=== PATIENT | male | born 1960 | race Caucasian/White ===

== ENCOUNTER 2018-11-27 09:02 | Inpatient (IN) | payer OTHER ==
--- NOTE | 2018-11-27 10:13 | PCM.HP ---
H&P History of Present Illness - General Date of Service: 11/27/18 Admit Problem/Dx: arthoplasty of hip Source of Information: Patient History Limitations: Reports: No Limitations - History of Present Illness Initial Comments - Free Text/Narative: patient is being admitted to swing bed care for rehabilitation after a total hip arthroplasty. He fell on November 21 resulting in a hip fracture. He presented to the ER on 11/22/18 and was diagnosed with a hip fracture. he had surgery on on November 23 has remained inpatient at [facility]. he has been admitted today for physical therapy and occupational therapy. His concerns regarding returning home include number of stairs that he would have navigate in order to get into the house and into the bedroom. Patient has moderate pain after surgery and has been taking hydrocodoneAPAP 5 mg/325 mg 2 tablets every 4 hours. This has been effective in pain control. He has no concerns with constipation at this time. However he has been placed on laxatives to prevent constipation. He is on a regular diet at the hospital and home. We will continue that. Patient is appropriate for swing bed care Onset of Symptoms: Reports: Other (11/21/2018) Right Hip Pain Score (Numeric/FACES): 4 - Related Data Allergies/Adverse Reactions: Allergies Allergy/AdvReac Type Severity Reaction Status Date / Time Plxpawm-Goc-Xpr Reductase Allergy Other Verified 07/26/18 10:23 Inhibitor Home Medications: Home Meds Aspirin 325 mg PO DAILY 07/25/18 [History] Hydrocodone/Acetaminophen [Hydrocodon-Acetaminophen 5-325] 1 - 2 tab PO Q4H PRN 07/25/18 [History] Multivitamin [Multi-Vitamin Daily] 1 tab PO DAILY 07/25/18 [History] Omeprazole 40 mg PO DAILY 07/25/18 [History] Tadalafil [Cialis] 5 mg PO ASDIRECTED PRN 07/25/18 [History] traMADol [Ultram] 50 mg PO Q4H PRN 07/25/18 [History] Past Medical History HEENT History: Reports: Cataract, Impaired Vision Cardiovascular History: Reports: High Cholesterol Respiratory History: Reports: None Gastrointestinal History: Reports: None, GERD Genitourinary History: Reports: None Musculoskeletal History: Reports: Arthritis, Back Pain, Chronic, Other (See Below) (total hip arthroplasty) Other Musculoskeletal History: pain in hip joint, pain in misti. knees Neurological History: Reports: None Other Neuro History: thoracic or lumbosacral neuritis or radiculitis, lumbar stenosis w/ neurogenic claudication Psychiatric History: Reports: None - Past Surgical History Head Surgeries/Procedures: Reports: None HEENT Surgical History: Reports: Cataract Surgery Cardiovascular Surgical History: Reports: None GI Surgical History: Reports: Colonoscopy Neurological Surgical History: Reports: Other (See Below) Other Neurological Surgeries/Procedures: spinal cord stimulator Musculoskeletal Surgical History: Reports: Hip Replacement Social & Family History - Family History Family Medical History: Noncontributory - Caffeine Use Caffeine Use: Reports: Coffee, Soda H&P Review of Systems - Review of Systems: Review Of Systems: See Below General: Reports: No Symptoms HEENT: Reports: No Symptoms, Glasses Pulmonary: Reports: No Symptoms Cardiovascular: Reports: No Symptoms Gastrointestinal: Reports: No Symptoms Genitourinary: Reports: No Symptoms Musculoskeletal: Reports: Leg Pain Skin: Reports: Wound Psychiatric: Reports: No Symptoms Neurological: Reports: No Symptoms Hematologic/Lymphatic: Reports: No Symptoms Immunologic: Reports: No Symptoms Exam - Exam Exam: See Below - Exam General: Alert, Oriented, Cooperative HEENT: Conjunctiva Clear, EOMI, Mucosa Moist & [place], Posterior Pharynx Clear, Pupils Equal, Pupils Reactive Neck: Supple, Trachea Midline Lungs: Clear to Auscultation, Normal Respiratory Effort Cardiovascular: Regular Rate, Regular Rhythm, Normal S1, Normal S2 GI/Abdominal Exam: Normal Bowel Sounds, Soft, Non-Tender (Male) Exam: Deferred Rectal (Males) Exam: Deferred Back Exam: Normal Inspection, Full Range of Motion Extremities: Normal Inspection, No Pedal Edema, Leg Pain, Limited Range of Motion (to right hip, otherwise ROM is unremarkable) Skin: Incision Neurological: Cranial Nerves Intact Neuro Extensive - Mental Status: Alert, Oriented x3, Normal Mood/Affect, Normal Cognition, Memory Intact Psychiatric: Alert, Normal Affect, Normal Mood - Problem List (1) History of arthroplasty of right hip SNOMED Code(s): 356022542 ICD Code: Z98.890 - OTHER SPECIFIED POSTPROCEDURAL STATES Status: Acute Current Visit: Yes Onset Date: ~11/23/18 Problem Details: Patient will follow PT and OT recommendations for rehabilitation after hip replacement. Patient will remain at a pain level that is tolerable and does not inhibit quality of life. Incision will be monitored and will heal without difficulty. Occulsive dressing will remain in place. Problem List Initiated/Reviewed/Updated: Yes
[2018-11-27] MEDS ORDERED: Codeine/guaiFENesin 100-10 MG/5 ML Syrup 5 ML Cup PO PRN (11:36)
[2018-11-27] MEDS: Acetaminophen/HYDROcodone 325-5 MG Tab PO PRN ×3 (11:49→22:46)
[2018-11-27] MEDS ORDERED: Acetaminophen 500 MG Tab PO PRN (12:00)
[2018-11-27] MEDS ORDERED: Acetaminophen/HYDROcodone 325-5 MG Tab PO PRN (12:00)
[2018-11-27] MEDS: Aspirin 325 MG Tab PO SCH (17:21)
[2018-11-27] MEDS: CELECOXIB 200 MG PO SCH (17:21)
[2018-11-28] MEDS: CELECOXIB 200 MG PO SCH ×2 (07:41→17:07)
[2018-11-28] MEDS: Multivitamin Tab PO SCH (07:41)
[2018-11-28] MEDS: Aspirin 325 MG Tab PO SCH ×2 (07:41→17:08)
[2018-11-28] MEDS: Omeprazole 20 MG Cap.CR PO SCH (07:42)
[2018-11-28] MEDS: Acetaminophen/HYDROcodone 325-5 MG Tab PO PRN ×3 (12:12→22:42)
[2018-11-28] MEDS ORDERED: Docusate Sodium 100 MG Cap PO PRN (20:16)
[2018-11-29] MEDS: CELECOXIB 200 MG PO SCH ×2 (07:23→17:37)
[2018-11-29] MEDS: Omeprazole 20 MG Cap.CR PO SCH (07:24)
[2018-11-29] MEDS: Multivitamin Tab PO SCH (07:24)
[2018-11-29] MEDS: Aspirin 325 MG Tab PO SCH ×2 (07:24→17:36)
[2018-11-29] MEDS: Acetaminophen/HYDROcodone 325-5 MG Tab PO PRN ×4 (07:25→19:49)
[2018-11-30] MEDS: Acetaminophen/HYDROcodone 325-5 MG Tab PO PRN ×3 (02:39→15:31)
[2018-11-30] MEDS: Omeprazole 20 MG Cap.CR PO SCH (07:14)
[2018-11-30] MEDS: CELECOXIB 200 MG PO SCH ×2 (07:15→17:10)
[2018-11-30] MEDS: Aspirin 325 MG Tab PO SCH ×2 (07:15→17:10)
[2018-11-30] MEDS: Multivitamin Tab PO SCH (07:18)
[2018-12-01] MEDS: Acetaminophen/HYDROcodone 325-5 MG Tab PO PRN ×4 (01:36→20:52)
[2018-12-01] MEDS: Multivitamin Tab PO SCH (07:13)
[2018-12-01] MEDS: Aspirin 325 MG Tab PO SCH ×2 (07:13→17:34)
[2018-12-01] MEDS: Omeprazole 20 MG Cap.CR PO SCH (07:14)
[2018-12-01] MEDS: CELECOXIB 200 MG PO SCH ×2 (07:14→17:34)
[2018-12-02] MEDS: Acetaminophen/HYDROcodone 325-5 MG Tab PO PRN ×2 (04:58→17:36)
[2018-12-02] MEDS: Multivitamin Tab PO SCH (08:08)
[2018-12-02] MEDS: Aspirin 325 MG Tab PO SCH ×2 (08:08→17:35)
[2018-12-02] MEDS: CELECOXIB 200 MG PO SCH (08:09)
[2018-12-02] MEDS: Omeprazole 20 MG Cap.CR PO SCH (08:09)
[2018-12-03] MEDS: Acetaminophen/HYDROcodone 325-5 MG Tab PO PRN ×4 (00:05→21:59)
[2018-12-03] MEDS: Omeprazole 20 MG Cap.CR PO SCH (07:35)
[2018-12-03] MEDS: Aspirin 325 MG Tab PO SCH ×2 (07:36→17:20)
[2018-12-03] MEDS: Multivitamin Tab PO SCH (07:36)
[2018-12-04] MEDS: Omeprazole 20 MG Cap.CR PO SCH (07:42)
[2018-12-04] MEDS: Aspirin 325 MG Tab PO SCH ×2 (07:43→17:10)
[2018-12-04] MEDS: Acetaminophen/HYDROcodone 325-5 MG Tab PO PRN ×3 (07:43→22:28)
[2018-12-04] MEDS: Multivitamin Tab PO SCH (07:48)
[2018-12-04] MEDS ORDERED: Acetaminophen/HYDROcodone 325-5 MG Tab PO PRN (11:01)
[2018-12-05] MEDS: Aspirin 325 MG Tab PO SCH ×2 (07:52→17:25)
[2018-12-05] MEDS: Acetaminophen/HYDROcodone 325-5 MG Tab PO PRN ×3 (07:52→23:36)
[2018-12-05] MEDS: Multivitamin Tab PO SCH (07:52)
[2018-12-05] MEDS: Omeprazole 20 MG Cap.CR PO SCH (07:53)
[2018-12-06] MEDS: Acetaminophen/HYDROcodone 325-5 MG Tab PO PRN (05:39)
[2018-12-06 05:48] VITALS: BP 109/68
[2018-12-06] MEDS: Multivitamin Tab PO SCH (07:37)
[2018-12-06] MEDS: Omeprazole 20 MG Cap.CR PO SCH (07:37)
[2018-12-06] MEDS: Aspirin 325 MG Tab PO SCH (07:38)
--- NOTE | 2018-12-06 10:52 | PCM.DCSUM1 ---
Discharge Summary - Hospital Course Free Text/Narrative:: patient was admitted for a swing bed stay after a total right hip arthroplasty. is admitted to receive PT and OT services for rehabilitation when she has successfully completed. He is up using a wheeled walker per himself. He rates his pain as "a 4 out of 10. He has been taking hydrocodone-APAP 5/325 2 tablets 3 times a day. This has been effective in controlling his pain. He'll be discharged home with his . He will receive outpatient therapy at [facility] in [place]. patient has a follow-up appointment this afternoon with his orthopedic which he'll be attending. Diagnosis: Stroke: No - Discharge Data Discharge Date: 12/06/18 Discharge Disposition: Home, Self-Care 01 Condition: Good - Discharge Diagnosis/Problem(s) (1) History of arthroplasty of right hip SNOMED Code(s): 626486511 ICD Code: Z98.890 - OTHER SPECIFIED POSTPROCEDURAL STATES Status: Acute Current Visit: Yes Onset Date: ~11/23/18 Problem Details: Patient the patient has worked with PT and OT appropriately. He is out himself with wheeled walker and doing well. He is able to shower and perform ADLs per self. He will be discharged home with on outpatient rehabilitation. - Patient Summary/Data Consults: Consultations 11/27/18 10:13 OT Evaluation and Treatment [CONS] Routine PT Evaluation and Treatment [CONS] Routine - Patient Instructions Diet: Usual Diet as Tolerated Activity: Apply Ice, As Tolerated Driving: May Drive Today Showering/Bathing: May Shower Wound/Incision Care: Keep Operative Site/Wound Site Clean and Dry Notify Provider of: Fever, Increased Pain, Swelling and Redness, Drainage - Discharge Plan *PRESCRIPTION DRUG MONITORING PROGRAM REVIEWED*: No *COPY OF PRESCRIPTION DRUG MONITORING REPORT IN PATIENT JANAY: No Home Medications: Home Meds Aspirin 325 mg PO DAILY 07/25/18 [History] Hydrocodone/Acetaminophen [Hydrocodon-Acetaminophen 5-325] 1 - 2 tab PO Q4H PRN 07/25/18 [History] Multivitamin [Multi-Vitamin Daily] 1 tab PO DAILY 07/25/18 [History] Omeprazole 40 mg PO DAILY 07/25/18 [History] Tadalafil [Cialis] 5 mg PO ASDIRECTED PRN 07/25/18 [History] Oxygen Therapy Mode: Room Air Patient Handouts: Total Hip Replacement, Care After - Discharge Summary/Plan Comment DC Time >30 min.: Yes - General Info Date of Service: 12/06/18 Admission Dx/Problem (Free Text: right hip arthroplasty Functional Status: Reports: Pain Controlled, Tolerating Diet, Ambulating - Review of Systems General: Reports: No Symptoms HEENT: Reports: No Symptoms Pulmonary: Reports: No Symptoms Cardiovascular: Reports: No Symptoms Gastrointestinal: Reports: No Symptoms Genitourinary: Reports: No Symptoms Musculoskeletal: Reports: No Symptoms Skin: Reports: No Symptoms Neurological: Reports: No Symptoms - Patient Data Vitals - Most Recent: Last Vital Signs Temp 96.8 F 12/06/18 05:47 Pulse 72 12/06/18 05:47 Resp 18 12/06/18 05:47 BP 109/68 12/06/18 05:47 Pulse Ox 98 12/06/18 05:47 Weight - Most Recent: 176 lb I&O - Last 24 hours: Intake & Output 12/05/18 12/06/18 12/06/18 22:59 06:59 14:59 Intake Total 1440 840 Balance 1440 840 Med Orders - Current: Current Medications Acetaminophen (Tylenol Extra Strength) 1,000 mg PO Q8H PRN PRN Reason: mild pain, fever or headache Last Admin: 12/05/18 02:39 Dose: 1,000 mg Hydrocodone Bitart/Acetaminophen (Cylinder 325-5 Mg) 2 tab PO Q6HR PRN PRN Reason: Pain (severe 6-10) Last Admin: 12/06/18 05:39 Dose: 2 tab Hydrocodone Bitart/Acetaminophen (Cylinder 325-5 Mg) 1 tab PO Q6H PRN PRN Reason: Pain 3-5 Aspirin (Aspirin) 325 mg PO BID [facility] Stop: 12/28/18 18:00 Last Admin: 12/06/18 07:38 Dose: 325 mg Docusate Sodium (Colace) 100 mg PO BID PRN PRN Reason: Constipation Last Admin: 11/29/18 07:24 Dose: 100 mg Guaifenesin/Codeine Phosphate (Robitussin Ac) 5 ml PO Q6H PRN PRN Reason: Cough Multivitamins/Minerals/Vitamin C (Tab-A-Melanie) 1 tab PO DAILY RAFAEL Last Admin: 12/06/18 07:37 Dose: 1 tab Omeprazole (Omeprazole) 40 mg PO DAILY RAFAEL Last Admin: 12/06/18 07:37 Dose: 40 mg Discontinued Medications Hydrocodone Bitart/Acetaminophen (Cylinder 325-5 Mg) 2 tab PO Q4H PRN PRN Reason: Pain (severe 6-10) Last Admin: 12/01/18 07:14 Dose: 2 tab Hydrocodone Bitart/Acetaminophen (Cylinder 325-5 Mg) 1 tab PO Q4H PRN PRN Reason: Pain (moderate 3-5) Last Admin: 11/28/18 07:42 Dose: 1 tab Celecoxib (Celebrex) (200mg Capsules) 1 each PO BID RAFAEL Stop: 12/02/18 08:01 Last Admin: 12/02/18 08:09 Dose: 1 each - Exam General: Reports: Alert, Oriented HEENT: Reports: Pupils Equal, Pupils Reactive, Mucous Membr. Moist/[place] Neck: Reports: Supple Lungs: Reports: Clear to Auscultation, Normal Respiratory Effort Cardiovascular: Reports: Regular Rate, Regular Rhythm GI/Abdominal Exam: Normal Bowel Sounds, Soft, Non-Tender, No Organomegaly, No Distention (Male) Exam: Deferred Rectal (Males) Exam: Deferred Back Exam: Reports: Normal Inspection, Full Range of Motion Extremities: Normal Inspection, Limited Range of Motion (to right hip) Skin: Reports: Warm, Dry, Intact Wound/Incisions: Reports: Healing Well Neurological: Reports: No New Focal Deficit Psy/Mental Status: Reports: Alert, Normal Affect, Normal Mood
== END 2018-12-06 12:15 | disposition home or self-care (01) | DRG 561 ==
LOC: LL.MS 11:03
PROVIDERS: ADMIT Nurse Practitioner; ATTEND Family Medicine
DX: Z47.1 Aftercare following joint replacement surgery (principal); E78.00 Pure hypercholesterolemia, unspecified; K21.9 Gastro-esophageal reflux disease without esophagitis; M19.91 Primary osteoarthritis, unspecified site; M54.9 Dorsalgia, unspecified; G89.29 Other chronic pain; Z96.641 Presence of right artificial hip joint; H54.7 Unspecified visual loss; Z98.49 Cataract extraction status, unspecified eye; Z88.8 Allergy status to other drugs, medicaments and biological substances; Z79.82 Long term (current) use of aspirin; Z79.899 Other long term (current) drug therapy
CPT/HCPCS: 97110-GO; 97110-GP; 97116-GP; 97140-GP; 97161-GP; 97165-GO; 97530-GO; 97530-GP; 97535-GO; A9270-GY

== ENCOUNTER 2020-02-02 17:45 | Emergency (ER) | payer BC ==
--- NOTE | 2020-02-02 18:00 | EDM.PDOC ---
ED HPI GENERAL MEDICAL PROBLEM - General Chief Complaint: General Stated Complaint: chills, body aches, headache Time Seen by Provider: 02/02/20 17:50 Source of Information: Reports: Patient, Old Records ([facility] EMR. No paper hospital chart available.) History Limitations: Reports: No Limitations - History of Present Illness INITIAL COMMENTS - FREE TEXT/NARRATIVE: The patient drove himself to the emergency room via private automobile for evaluation of fever and chills associated with bilateral anterior chest wall pleurisy with symptoms starting at about 15:00 hours. He denies any known exposure to infection and did test negative for COVID-19 at [facility] 2 weeks ago by his history. The patient denies any chest pressure, heart flutter, dizziness , orthostasis, orthopnea, diaphoresis, paresthesias, recent decreased exercise tolerance, or any other anginal-type symptoms. No recent history of abdominal pain, heartburn, nausea, diarrhea, melena, gross hematochezia, or any food intolerance, including fatty foods, etc.. He denies any gross hematuria, colic, or other UTI symptoms. The patient also denies any recent cough, wheezing, dyspnea, etc.. Onset: Today, Gradual Onset Date: 02/02/20 Onset Time: 15:00 Duration: Getting Worse Location: Reports: Chest. Denies: Head, Face, Neck, Abdomen, Back, Pelvis, Upper Extremity, Left, Upper Extremity, Right, Lower Extremity, Left, Radiates to Quality: Reports: Same as Previous Episode, Sharp Severity: Mild Improves with: Reports: Rest Worsens with: Reports: Breathing Context: Reports: Other (As above). Denies: Sick Contact, Trauma Associated Symptoms: Reports: Chest Pain (Pleurisy), Fever/Chills. 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 Denies: Acetaminophen, NSAIDS, Other Medication(s) Chest Pain Score (Numeric/FACES): 3 - Related Data Allergies Allergy/AdvReac Type Severity Reaction Status Date / Time Kziggjd-Oai-Uzf Reductase Allergy Other Verified 02/02/20 17:48 Inhibitor Home Meds: Home Meds Aspirin 325 mg PO DAILY 07/25/18 [History] Multivitamin [Multi-Vitamin Daily] 1 tab PO DAILY 07/25/18 [History] tadalafiL [Cialis] 5 mg PO ASDIRECTED PRN 07/25/18 [History] DULoxetine [Cymbalta] 40 mg PO DAILY 02/02/20 [History] Past Medical History HEENT History: Reports: Cataract, Impaired Vision, Other (See Below) Other HEENT History: he wears glasses. Cardiovascular History: Reports: High Cholesterol Respiratory History: Reports: None Gastrointestinal History: Reports: GERD Genitourinary History: Reports: Other (See Below) Other Genitourinary History: Erectile dysfunction. Musculoskeletal History: Reports: Arthritis, Back Pain, Chronic, Fracture, Osteoarthritis, Other (See Below) Other Musculoskeletal History: Right hip fracture on 11/21/18. Neurological History: Reports: Neuropathy, Peripheral, Other (See Below). Denies: Concussion, Head Trauma Other Neuro History: thoracic or lumbosacral neuritis or radiculitis, lumbar stenosis w/ neurogenic claudication Psychiatric History: Reports: Anxiety, Depression Endocrine/Metabolic History: Reports: None Immunologic History: Reports: None - Infectious Disease History Infectious Disease History: Reports: Chicken Pox, Influenza - Past Surgical History Head Surgeries/Procedures: Reports: None HEENT Surgical History: Reports: Cataract Surgery, Oral Surgery, Other (See Below) Other HEENT Surgeries/Procedures: Left-sided cataract surgery in 2019 with right -sided cataract surgery in 2016. Multiple teeth extractions. Cardiovascular Surgical History: Reports: None GI Surgical History: Reports: Colonoscopy, Other (See Below) Other GI Surgeries/Procedures: Colonoscopy on 07/26/18. Neurological Surgical History: Reports: Lumbar Spine, Spinal Fusion, Other (See Below) Other Neurological Surgeries/Procedures: Spinal cord stimulator placed in the thoracic region in February 2018. L4-5 spinal fusion in 2010. Musculoskeletal Surgical History: Reports: Arthroscopic Procedure, Hip Replacement, Shoulder Surgery, Other (See Below) Other Musculoskeletal Surgeries/Procedures:: Right hip TEP on 11/23/18. Left great toe fusion in 2017. Arthroscopic left shoulder surgery 2 in 2004. Arthroscopic right shoulder surgery initially in the then in 2017. Social & Family History - Family History Family Medical History: Noncontributory HEENT: Reports: None Cardiac: Reports: CAD, [place] Respiratory: Reports: None GI: Reports: None : Reports: None OBGYN: Reports: None Musculoskeletal: Reports: None Neurological: Reports: None Psychiatric: Reports: None Endocrine/Metabolic: Reports: Diabetes, type II Hematologic: Reports: None Immunologic: Reports: None Dermatologic: Reports: None Oncologic: Reports: Breast, Lung - Tobacco Use Smoking Status *Q: Never Smoker Tobacco Use Within Last Twelve Months: No Used Tobacco, but Quit: No Smoking Cessation Information Provided To Patient: No Second Hand Smoke Exposure: No Second Hand Smoke Education Provided: No - Caffeine Use Caffeine Use: Reports: Coffee, Soda - Alcohol Use Alcohol Use History: No Days Per Week of Alcohol Use: 0 Number of Drinks Per Day: 0 Number of Drinks Per Day Comment: No previous DWIs, problems with alcohol abuse , etc. Total Drinks Per Week: 0 Alcohol Use in Last Twelve Months: No - Recreational Drug Use Recreational Drug Use: No Drug Use in Last 12 Months: No Recreational Drug Type: Denies: Amphetamines (Speed), Cocaine, Heroin, Inhalants (Glues, Solvents, Aerosols), LSD (Acid), Marijuana/Hashish, Methamphetamine, Morphine, Oxycodone - Living Situation & Occupation Occupation: Employed ([employer]) ED ROS GENERAL - Review of Systems Review Of Systems: Comprehensive ROS is negative, except as noted in HPI. ED EXAM, GENERAL - Physical Exam Exam: See Below Exam Limited By: No Limitations General Appearance: Alert, WD/WN, No Apparent Distress, Anxious (Mild) Eye Exam: Bilateral Eye: EOMI, Normal Inspection (No nystagmus. Patient is wearing glasses.), PERRL Ears: Normal External Exam, Normal Canal, Hearing Grossly Normal, Normal TMs Nose: Normal Mucosa, No Blood, Clear Rhinorrhea Throat/Mouth: Normal Inspection, Normal Lips, Normal Teeth, Normal Gums, Normal Oropharynx, Normal Voice, No Airway Compromise. No: Dysphagia, Perioral Cyanosis Neck: Normal Inspection, Supple, Non-Tender, Full Range of Motion. No: Lymphadenopathy (L), Lymphadenopathy (R), Thyromegaly Respiratory/Chest: No Respiratory Distress, Lungs Clear, Normal Breath Sounds, No Accessory Muscle Use, Chest Non-Tender. No: Pleural Rub, Retractions Cardiovascular: Normal Peripheral Pulses, Regular Rate, Rhythm, No Edema, No Gallop, No JVD, No Murmur, No Rub. No: Gallop/S3, Gallop/S4, Friction Rub Peripheral Pulses: 2+: Radial (L), Radial (R) GI/Abdominal: Normal Bowel Sounds, Soft, Non-Tender, No Organomegaly, No Distention, No Abnormal Bruit, No Mass. No: Guarding (Male) Exam: Deferred Rectal (Males) Exam: Deferred Back Exam: Normal Inspection, Full Range of Motion. No: CVA Tenderness (L), CVA Tenderness (R), Muscle Spasm Extremities: Normal Inspection, Normal Range of Motion, Non-Tender, No Pedal Edema, Normal Capillary Refill. No: Catherine's Sign Neurological: Alert, Oriented, CN II-XII Intact, Normal Cognition, Normal Gait, No Motor/Sensory Deficits Psychiatric: Anxious (Mild). No: Depressed Mood Skin Exam: Warm, Dry, Intact, Normal Color, No Rash. No: Diaphoretic, Wound/ Incision Lymphatic: No Adenopathy Course - Vital Signs Last Recorded V/S: Last Vital Signs Temp 37.2 C 02/02/20 17:50 Pulse 80 02/02/20 17:50 Resp 18 02/02/20 17:50 BP 122/68 02/02/20 17:50 Pulse Ox 97 02/02/20 17:50 Vital Signs - 24 hr 02/02/20 17:50 Temperature [ 37.2 C Oral] Pulse, 80 Peripheral [ Pulse Oximetry] Respiratory 18 Rate Blood Pressure 122/68 [Left Upper Arm ] O2 Sat by Pulse 97 Oximetry - Orders/Labs/Meds Orders: Active Orders 24 hr Category Date Time Status Oxygen Therapy, ED [RC] PRN Care 02/02/20 18:01 Active Peripheral IV Care [RC] . DIRECTED Care 02/02/20 19:20 Active Pulse Oximetry [RC] CONTINUOUS Care 02/02/20 18:01 Active Up With Assistance [RC] ASDIRECTED Care 02/02/20 18:01 Active Nothing Per Oral Diet [DIET] Diet 02/02/20 Breakfast Active Chest 1V Frontal [CR] Stat Exams 02/02/20 18:01 Taken CORONAVIRUS, COVID19 IGG AB, S [REF] Urgent Lab 02/02/20 19:00 Received CULTURE BLOOD [BC] Stat Lab 02/02/20 18:20 Received CULTURE BLOOD [BC] Stat Lab 02/02/20 18:25 Received CULTURE STREP A CONFIRMATION [RM] Stat Lab 02/02/20 19:00 Results CULTURE URINE [RM] Routine Lab 02/02/20 19:45 Received STREP SCRN A RAPID W CULT CONF [RM] Stat Lab 02/02/20 19:00 Results Sodium Chloride 0.9% [Saline Flush] Med 02/02/20 19:20 Active 10 ml FLUSH ASDIRECTED PRN Blood Culture x2 Reflex Set [OM.PC] Stat Oth 02/02/20 18:01 Ordered Obtain Past Medical Record [OM.PC] Stat Oth 02/02/20 18:01 Active Peripheral IV Insertion Adult [OM.PC] Routine Oth 02/02/20 19:20 Ordered Resuscitation Status Routine Resus Stat 02/02/20 18:01 Ordered Medication Orders Sodium Chloride (Saline Flush) 10 ml FLUSH ASDIRECTED PRN PRN Reason: Keep Vein Open Labs: Laboratory Tests 02/02/20 02/02/20 02/02/20 Range/Units 18:20 18:20 18:20 WBC 6.6 (4.0-10.2) K/uL RBC 4.69 (4.33-5.41) M/uL Hgb 14.8 (13.1-16.8) g/dL Hct 45.4 (39.0-49.0) % MCV 96.8 (84.0-98.0) fL MCH 31.6 (28.2-33.3) pg MCHC 32.6 (31.7-36.0) g/dL RDW 13.7 (11.2-14.1) % Plt Count 205 (150-350) K/uL Neut % (Auto) 78.2 (45.0-80.0) % Lymph % (Auto) 11.1 (10.0-50.0) % Alexander % (Auto) 9.0 (2.0-14.0) % Eos % (Auto) 1.4 (0.0-5.0) % Baso % (Auto) 0.3 (0.0-2.0) % Neut # (Auto) 5.19 (1.40-7.00) K/uL Lymph # (Auto) 0.74 (0.50-3.50) K/uL Alexander # (Auto) 0.60 (0.00-1.00) K/uL Eos # (Auto) 0.09 (0.00-0.50) K/uL Baso # (Auto) 0.02 (0.00-0.20) K/uL PT 10.1 (9.5-12.0) SEC INR 1.0 APTT 28.6 (24.5-32.8) SEC D-Dimer, Quantitative (0-400) ng/mL Sodium 137 (136-145) mmol/L Potassium 3.9 (3.5-5.1) mmol/L Chloride 100 (98-107) mmol/L Carbon Dioxide 26.4 (21.0-32.0) mmol/L BUN 20 H (7-18) mg/dL Creatinine 0.62 (0.51-1.17) mg/dL Est Cr Clr Drug Dosing 112.91 mL/min Estimated GFR (MDRD) > 60 mL/min Glucose 167 H (74-106) mg/dL Lactic Acid (0.4-2.0) mmol/L Calcium 9.1 (8.5-10.1) mg/dL Magnesium 1.8 (1.8-2.4) mg/dL Total Bilirubin 0.7 (0.2-1.0) mg/dL AST 29 (15-37) U/L ALT 41 (12-78) U/L Alkaline Phosphatase 102 (46-116) IU/L Total Protein 7.4 (6.4-8.2) g/dL Albumin 4.2 (3.4-5.0) g/dL Specimen Type Urine Color Urine Appearance Urine pH (5.0-9.0) Ur Specific [place] (1.005-1.030) Urine Protein (NEGATIVE) mg/dL Urine Glucose (UA) (NEGATIVE) mg/dL Urine Ketones (NEGATIVE) mg/dL Urine Occult Blood (NEGATIVE) Urine Nitrite (NEGATIVE) Urine Bilirubin (NEGATIVE) Urine Urobilinogen (0.2-1.0) E.U./dL Ur Leukocyte Esterase (NEGATIVE) Urine RBC /HPF Urine WBC /HPF Ur Epithelial Cells /LPF Urine Bacteria (NONE TO FEW) /HPF Urine Mucus (NEGATIVE) /LPF 02/02/20 02/02/20 02/02/20 Range/Units 18:20 18:20 19:45 WBC (4.0-10.2) K/uL RBC (4.33-5.41) M/uL Hgb (13.1-16.8) g/dL Hct (39.0-49.0) % MCV (84.0-98.0) fL MCH (28.2-33.3) pg MCHC (31.7-36.0) g/dL RDW (11.2-14.1) % Plt Count (150-350) K/uL Neut % (Auto) (45.0-80.0) % Lymph % (Auto) (10.0-50.0) % Alexander % (Auto) (2.0-14.0) % Eos % (Auto) (0.0-5.0) % Baso % (Auto) (0.0-2.0) % Neut # (Auto) (1.40-7.00) K/uL Lymph # (Auto) (0.50-3.50) K/uL Alexander # (Auto) (0.00-1.00) K/uL Eos # (Auto) (0.00-0.50) K/uL Baso # (Auto) (0.00-0.20) K/uL PT (9.5-12.0) SEC INR APTT (24.5-32.8) SEC D-Dimer, Quantitative 382 (0-400) ng/mL Sodium (136-145) mmol/L Potassium (3.5-5.1) mmol/L Chloride (98-107) mmol/L Carbon Dioxide (21.0-32.0) mmol/L BUN (7-18) mg/dL Creatinine (0.51-1.17) mg/dL Est Cr Clr Drug Dosing mL/min Estimated GFR (MDRD) mL/min Glucose (74-106) mg/dL Lactic Acid 2.4 H (0.4-2.0) mmol/L Calcium (8.5-10.1) mg/dL Magnesium (1.8-2.4) mg/dL Total Bilirubin (0.2-1.0) mg/dL AST (15-37) U/L ALT (12-78) U/L Alkaline Phosphatase (46-116) IU/L Total Protein (6.4-8.2) g/dL Albumin (3.4-5.0) g/dL Specimen Type Urincc Urine Color Yellow Urine Appearance Clear Urine pH 6.0 (5.0-9.0) Ur Specific [place] 1.020 (1.005-1.030) Urine Protein Negative (NEGATIVE) mg/dL Urine Glucose (UA) Negative (NEGATIVE) mg/dL Urine Ketones Trace H (NEGATIVE) mg/dL Urine Occult Blood Small H (NEGATIVE) Urine Nitrite Negative (NEGATIVE) Urine Bilirubin Negative (NEGATIVE) Urine Urobilinogen 0.2 (0.2-1.0) E.U./dL Ur Leukocyte Esterase Negative (NEGATIVE) Urine RBC 10-20 H /HPF Urine WBC Not seen /HPF Ur Epithelial Cells Not seen /LPF Urine Bacteria Not seen (NONE TO FEW) /HPF Urine Mucus Few H (NEGATIVE) /LPF Blood cultures 2 were collected Urine specimen set up for culture and sensitivity COVID-19 collected Microbiology 02/02/20 19:00 Group A Streptococcus Rapid Screen - Final Throat NEGATIVE STREP A SCREEN REFERENCE RANGE: NEGATIVE Meds: Medications Generic Name Dose Route Start Last Admin Trade Name Freq PRN Reason Stop Dose Admin Sodium Chloride 10 ml 02/02/20 19:20 Saline Flush FLUSH ASDIRECTED PRN Keep Vein Open Discontinued Medications Generic Name Dose Route Start Last Admin Trade Name Freq PRN Reason Stop Dose Admin Lactated Ringer's 1,000 mls @ 999 mls/hr 02/02/20 19:19 02/02/20 19:27 Ringers, Lactated IV 02/02/20 20:19 999 mls/hr .BOLUS ONE Administration - Radiology Interpretation Free Text/Narrative:: Chest x-ray portable shows evidence of probable right perihilar and right middle lobe atelectasis with no significant pulmonary infiltrates. Possible mild COPD changes with mild 1 cm right lower lobe calcification of unknown character. Thoracic stimulator noted. No cardiomegaly, CHF, pneumothorax, etc. Departure - Departure Time of Disposition: 20:43 Disposition: Home, Self-Care 01 Condition: Good Clinical Impression: Bronchitis, Pleurisy, Elevated lactic acid level, URI (upper respiratory infection), Peptic reflux disease, Mixed anxiety depressive disorder, Hematuria - Discharge Information *PRESCRIPTION DRUG MONITORING PROGRAM REVIEWED*: Not Applicable *COPY OF PRESCRIPTION DRUG MONITORING REPORT IN PATIENT JANAY: Not Applicable Referrals: Milena Zavala PA-C [Primary Care Provider] - Forms: ED Department Discharge Additional Instructions: 1. Follow-up in this facility as an outpatient tomorrow morning at about 9 AM for outpatient CBC and lactic acid level. Do not leave this facility until you talk with this provider for further instructions. 2. Tylenol 650 mg by mouth every 4 hours and/or OTC ibuprofen 2-3 tabs by mouth every 6 hours with food as directed./needed. You may stagger these medications for 48-72 hours only, which essentially means that you are receiving a pain medication about every 2 hours. 3. Maintain recommended quarantine until you have been notified of today's COVID-19 test results as discussed with return to previous social distancing, use of masks, etc., thereafter as per current recommended CDC guidelines 4. Hygiene issues as discussed 5. Work excuse- See Form. You may not return to work until you are fever and symptom free without Tylenol, ibuprofen, etc. for 24 hours and you have been notified that your COVID-19 screen today is negative. Contact either on-call physician in this facility or your regular provider for return to work Bobcat excuse. 6. Otherwise, Follow up with your regular provider in 10-14 days as directed for reevaluation and recommended repeat chest x-ray. Bring these discharge instructions with you to that visit. 7. Immediately after this visit verify that your cellular telephone's voicemail has been activated and is empty. Also verify that your home telephone 's answering machine is operating properly and has space to receive messages. Note that it is sometimes necessary for us to be able to contact you at a later date to discuss your medical care. 8. Please remember that we are ALWAYS here for you and want to answer any questions you may have. Feel free to call the hospital any time and we call you back ALFREDITO. Sepsis Event Note - Evaluation Sepsis Screening Result: No Definite Risk - Focused Exam Vital Signs: Vital Signs Temp Pulse Resp BP Pulse Ox 02/02/20 17:50 37.2 C 80 18 122/68 97 Date Exam was Performed: 02/02/20 Time Exam was Performed: 20:46 - Problem List & Annotations (1) Bronchitis SNOMED Code(s): 88782933 Code(s): J40 - BRONCHITIS, NOT SPECIFIED ACUTE OR CHRONIC Status: Acute Priority: High Current Visit: Yes Onset Date: 02/02/20 Annotation/ Comment:: Probable mild viral bronchitis with secondary pleurisy. Patient did not measure his temperature at home with no antipyretic medications taken prior to arrival. Secondary to low-grade fever COVID-19 was once again collected, however. Bobcat work excuse, isolation precautions, etc. were extensively discussed as per discharge instructions. Symptomatic relief for now with no indication for antibiotics at this time. Follow-up with regular provider as per discharge instructions with consideration of CT scan of the chest depending on follow-up chest x-ray, today's x-ray report, which is still pending, etc.. Note possible right lower lobe pulmonary nodule and COPD by my evaluation today. 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 Consider sputum specimen for further evaluation, we were unable to obtain during this emergency room visit. (2) Pleurisy SNOMED Code(s): 217199414 Code(s): R09.1 - PLEURISY Status: Acute Priority: High Current Visit: Yes Onset Date: 02/02/20 Annotation/Comment:: As above with symptomatic relief with OTC NSAIDs (3) Elevated lactic acid level SNOMED Code(s): 8225088 Code(s): R79.89 - OTHER SPECIFIED ABNORMAL FINDINGS OF BLOOD CHEMISTRY Status: Acute Priority: High Current Visit: Yes Onset Date: 02/02/20 Annotation/Comment:: No clinical indication of sepsis. Various therapeutic options were discussed with the patient, who does not wish to be hospitalized. One Liter lactated Ringer's given by means of IV bolus in the emergency room. He will follow-up in this facility tomorrow morning for repeat blood work and further instructions. (4) Hematuria SNOMED Code(s): 41864477 Code(s): R31.9 - HEMATURIA, UNSPECIFIED Status: Acute Priority: High Current Visit: Yes Onset Date: 02/02/20 Annotation/Comment:: No history of UTI symptoms including colic, dysuria, etc. No leukocytosis with no bacteria noted in microscopic evaluation. Urine specimen set up for culture and sensitivity. Further treatment and/or workup depending on his clinical course. Qualifiers: Hematuria type: asymptomatic microscopic Qualified Code(s): R31.21 - Asymptomatic microscopic hematuria (5) URI (upper respiratory infection) SNOMED Code(s): 66662600 Code(s): J06.9 - ACUTE UPPER RESPIRATORY INFECTION, UNSPECIFIED Status: Acute Priority: Medium Current Visit: Yes Onset Date: 02/02/20 Annotation/Comment:: As above Qualifiers: URI type: unspecified viral URI Qualified Code(s): J06.9 - Acute upper respiratory infection, unspecified (6) Mixed anxiety depressive disorder SNOMED Code(s): 305856251 Code(s): F41.8 - OTHER SPECIFIED ANXIETY DISORDERS Status: Chronic Priority: Medium Current Visit: Yes Annotation/Comment:: Stable by history. Continue to observe closely by his regular provider. (7) Peptic reflux disease SNOMED Code(s): 938404775 Code(s): K21.9 - GASTRO-ESOPHAGEAL REFLUX DISEASE WITHOUT ESOPHAGITIS Status: Chronic Priority: Medium Current Visit: Yes Annotation/Comment:: Stable by history - Problem List Review Problem List Initiated/Reviewed/Updated: Yes - My Orders Last 24 Hours: My Active Orders 02/02/20 18:01 Oxygen Therapy, ED [RC] PRN Pulse Oximetry [RC] CONTINUOUS Up With Assistance [RC] ASDIRECTED Chest 1V Frontal [CR] Stat Blood Culture x2 Reflex Set [OM.PC] Stat Obtain Past Medical Record [OM.PC] Stat Resuscitation Status Routine 02/02/20 18:20 CULTURE BLOOD [BC] Stat 02/02/20 18:25 CULTURE BLOOD [BC] Stat 02/02/20 19:00 CORONAVIRUS, COVID19 IGG AB, S [REF] Urgent CULTURE STREP A CONFIRMATION [RM] Stat STREP SCRN A RAPID W CULT CONF [RM] Stat 02/02/20 19:20 Peripheral IV Care [RC] . DIRECTED Sodium Chloride 0.9% [Saline Flush] 10 ml FLUSH ASDIRECTED PRN Peripheral IV Insertion Adult [OM.PC] Routine 02/02/20 19:45 CULTURE URINE [RM] Routine 02/02/20 Breakfast Nothing Per Oral Diet [DIET] - Assessment/Plan Last 24 Hours: My Active Orders 02/02/20 18:01 Oxygen Therapy, ED [RC] PRN Pulse Oximetry [RC] CONTINUOUS Up With Assistance [RC] ASDIRECTED Chest 1V Frontal [CR] Stat Blood Culture x2 Reflex Set [OM.PC] Stat Obtain Past Medical Record [OM.PC] Stat Resuscitation Status Routine 02/02/20 18:20 CULTURE BLOOD [BC] Stat 02/02/20 18:25 CULTURE BLOOD [BC] Stat 02/02/20 19:00 CORONAVIRUS, COVID19 IGG AB, S [REF] Urgent CULTURE STREP A CONFIRMATION [RM] Stat STREP SCRN A RAPID W CULT CONF [RM] Stat 02/02/20 19:20 Peripheral IV Care [RC] . DIRECTED Sodium Chloride 0.9% [Saline Flush] 10 ml FLUSH ASDIRECTED PRN Peripheral IV Insertion Adult [OM.PC] Routine 02/02/20 19:45 CULTURE URINE [RM] Routine 02/02/20 Breakfast Nothing Per Oral Diet [DIET] Assessment:: As above Plan: As above. Extensive precautions were given to the patient, who is in agreement with the treatment plan. See Patient Instructions for further treatment and plan.
[2020-02-02 18:54] LABS: CHLORIDE,CL 100 mmol/L (98-107); SODIUM,NA 137 mmol/L (136-145)
[2020-02-02 19:06] LABS: PTT,PARTIAL THROMBOPLSTIN TIME 28.6 SEC (24.5-32.8)
[2020-02-02] MEDS ORDERED: Lactated Ringers 1,000 ML IV ONE (19:19)
[2020-02-02] MEDS ORDERED: Sodium Chloride 0.9% 10 ML Syringe FLUSH PRN (19:20)
== END 2020-02-02 20:40 | disposition home or self-care (01) ==
LOC: LL.ED 17:45
DX: J40 Bronchitis, not specified as acute or chronic (principal); R09.1 Pleurisy; J06.9 Acute upper respiratory infection, unspecified; K27.9 Peptic ulcer, site unspecified, unspecified as acute or chronic, without hemorrhage or perforation; F41.8 Other specified anxiety disorders; R74.0 Nonspecific elevation of levels of transaminase and lactic acid dehydrogenase [LDH]; G62.9 Polyneuropathy, unspecified; Z79.899 Other long term (current) drug therapy; Z88.8 Allergy status to other drugs, medicaments and biological substances; Z79.82 Long term (current) use of aspirin
CPT/HCPCS: 36415; 71045; 80053; 81001; 83605; 83735; 85025; 85379; 85610; 85730; 86769; 87040; 87081; 87086; 87430; 96360; 99285-25; J7120; U0002

== ENCOUNTER 2020-07-02 10:55 | Emergency (ER) | payer BC, OTHER ==
--- NOTE | 2020-07-02 10:58 | EDM.PDOC ---
ED HPI GENERAL MEDICAL PROBLEM - General Chief Complaint: Chest Pain Stated Complaint: Chest Pain Time Seen by Provider: 07/02/20 10:57 Source of Information: Reports: Patient, EMS, Old Records ([facility] chart/EMR). Denies: EMS Notes Reviewed History Limitations: Reports: No Limitations - History of Present Illness INITIAL COMMENTS - FREE TEXT/NARRATIVE: The patient was brought to the emergency room via ambulance with both EMT and rouge miller accompaniment with paramedics after intercepting the basic ambulance transport team in route. At about 9 AM this morning the patient began not feeling well with 10/10 left-sided sharp chest pain radiating to the left shoulder and left arm with subsequent apparent syncopal episode with loss of consciousness for about 3 minutes per the rouge miller. No history of fall, head injury, seizure activity, etc.. Note current increased stressors secondary to his brother's with the patient is coming back from [place] yesterday evening. The patient denies any heart flutter, dizziness, orthopnea, diaphoresis, paresthesias, recent decreased exercise tolerance, or any other anginal-type symptoms. No recent history of abdominal pain, heartburn, nausea, diarrhea, melena, gross hematochezia, or any food intolerance, including fatty foods, etc. with normal bowel movement yesterday. He denies any gross hematuri a, colic, or other UTI symptoms despite his previous history of benign chronic microhematuria. The patient also denies any recent fever, cough, wheezing, dyspnea, etc.. No known exposure to infection, including COVID-19, etc. No history of recent headaches, visual changes, diplopia, change in mental status, or other change in neurological status. Onset: Today, Gradual, Unknown/Unsure Onset Date: 07/02/20 Onset Time: 10:00 Duration: Constant Location: Reports: Neck, Upper Extremity, Left, Radiates to (As above). Denies: Head, Face, Chest, Abdomen, Back, Upper Extremity, Right Quality: Reports: Same as Previous Episode, Sharp Severity: Severe Improves with: Reports: None Worsens with: Reports: None Context: Reports: Other (As above). Denies: Sick Contact, Trauma Associated Symptoms: Reports: Chest Pain, Syncope. 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: Aspirin, EKG, IV/IO, Oxygen (Nonrebreather mask at 100% O2 at 20 L/min secondary to hypoxia with O2 sats in the 80th percentile likely secondary to cold extremities with no hypoxia on arrival, including on room air) chest Pain Score (Numeric/FACES): 8 - Related Data Allergies Allergy/AdvReac Type Severity Reaction Status Date / Time oxycodone AdvReac Itching Verified 07/02/20 11:16 Itpcols-Yrl-Wpz Reductase AdvReac Muscle Verified 07/02/20 11:16 Inhibitor Aches Home Meds: Home Meds Aspirin 325 mg PO DAILY 07/25/18 [History] Multivitamin [Multi-Vitamin Daily] 1 tab PO DAILY 07/25/18 [History] tadalafiL [Cialis] 5 mg PO ASDIRECTED PRN 07/25/18 [History] DULoxetine [Cymbalta] 60 mg PO DAILY 02/02/20 [History] Omeprazole 20 mg PO DAILY 07/02/20 [History] Past Medical History HEENT History: Reports: Cataract, Impaired Vision, Other (See Below) Other HEENT History: he wears glasses. Cardiovascular History: Reports: High Cholesterol Respiratory History: Reports: COPD, Other (See Below) Other Respiratory History: COPD by chest x-ray with no current treatment, etc. Gastrointestinal History: Reports: GERD, Hiatal Hernia Genitourinary History: Reports: Other (See Below) Other Genitourinary History: Benign chronic microcytic anemia with previous negative extensive work-up by patient history. Erectile dysfunction. Musculoskeletal History: Reports: Arthritis, Back Pain, Chronic, Fracture, Osteoarthritis, Other (See Below) Other Musculoskeletal History: Right hip fracture on 11/21/18. Neurological History: Reports: Neuropathy, Peripheral, Other (See Below). Denies: Concussion, Head Trauma Other Neuro History: thoracic or lumbosacral neuritis or radiculitis, lumbar stenosis w/ neurogenic claudication Psychiatric History: Reports: Anxiety, Depression Endocrine/Metabolic History: Reports: None Immunologic History: Reports: None - Infectious Disease History Infectious Disease History: Reports: Chicken Pox, Influenza - Past Surgical History Head Surgeries/Procedures: Reports: None HEENT Surgical History: Reports: Cataract Surgery, Oral Surgery, Other (See Below) Other HEENT Surgeries/Procedures: Left-sided cataract surgery in 2019 with right-sided cataract surgery in 2017. Multiple teeth extractions. Cardiovascular Surgical History: Reports: None. Denies: Varicose GI Surgical History: Reports: Colonoscopy, Other (See Below) Other GI Surgeries/Procedures: Colonoscopy on 07/26/18. Neurological Surgical History: Reports: Lumbar Spine, Spinal Fusion, Other (See Below) Other Neurological Surgeries/Procedures: Spinal cord stimulator placed in the thoracic region in February 2018. L4-5 spinal fusion in 2010. Musculoskeletal Surgical History: Reports: Arthroscopic Procedure, Hip Replacement, Shoulder Surgery, Other (See Below) Other Musculoskeletal Surgeries/Procedures:: Right hip TEP on 11/23/18. Left great toe fusion in 2018. Arthroscopic left shoulder surgery 2 in 2004. Arthroscopic right shoulder surgery initially in the then in 2016. - Past Imaging History Past Imaging History: Reports: Angiography (Negative heart catheterization in about 2018 by patient history.) Social & Family History - Family History HEENT: Reports: None Cardiac: Reports: CAD, [place] Respiratory: Reports: None GI: Reports: None : Reports: None OBGYN: Reports: None Musculoskeletal: Reports: None Neurological: Reports: Other (See Below) (Brother with fatal Kreutz Viera's disease at age 61) Psychiatric: Reports: None Endocrine/Metabolic: Reports: Diabetes, type II Hematologic: Reports: None Immunologic: Reports: None Dermatologic: Reports: None Oncologic: Reports: Breast, Lung - Tobacco Use Tobacco Use Status *Q: Never Tobacco User Tobacco Use Within Last Twelve Months: No Used Tobacco, but Quit: No Smoking Cessation Information Provided To Patient: No Second Hand Smoke Exposure: No Second Hand Smoke Education Provided: No - Caffeine Use Caffeine Use: Reports: Coffee, Soda - Alcohol Use Alcohol Use History: No Days Per Week of Alcohol Use: 0 Number of Drinks Per Day: 0 Number of Drinks Per Day Comment: No previous DWIs, problems with alcohol abuse, etc. Total Drinks Per Week: 0 Alcohol Use in Last Twelve Months: No - Recreational Drug Use Recreational Drug Use: No Drug Use in Last 12 Months: No Recreational Drug Type: Denies: Amphetamines (Speed), Cocaine, Heroin, Inhalants (Glues, Solvents, Aerosols), LSD (Acid), Marijuana/Hashish, Methamphetamine, Morphine, Oxycodone - Living Situation & Occupation Living situation: Reports: , with Family Occupation: Employed ([employer]) ED ROS GENERAL - Review of Systems Review Of Systems: Comprehensive ROS is negative, except as noted in HPI. ED EXAM, GENERAL - Physical Exam Exam: See Below Exam Limited By: No Limitations General Appearance: Alert, WD/WN, No Apparent Distress, Anxious (Moderate) Eye Exam: Bilateral Eye: EOMI, Normal Inspection (No nystagmus. Patient wearing glasses.), PERRL Ears: Normal External Exam, Normal Canal, Hearing Grossly Normal, Normal TMs (Although evidence of bilateral TM defects/scarring from previous PE tubes.) Nose: Normal Inspection, Normal Mucosa, No Blood Throat/Mouth: Normal Inspection, Normal Lips, Normal Teeth (Multiple missing teeth), Normal Gums, Normal Oropharynx, Normal Voice, No Airway Compromise, Other (No tongue injury). No: Dysphagia, Inflammation, Perioral Cyanosis Head: Atraumatic, Normocephalic. No: Facial Swelling, Facial Tenderness, Sinus Tenderness Neck: Normal Inspection, Supple, Non-Tender, Full Range of Motion. No: Carotid Bruit, Lymphadenopathy (L), Lymphadenopathy (R), Thyromegaly Respiratory/Chest: No Respiratory Distress, Lungs Clear, Normal Breath Sounds, No Accessory Muscle Use, Chest Non-Tender. No: Pleural Rub, Retractions Cardiovascular: Normal Peripheral Pulses, Regular Rate, Rhythm, No Edema, No Gallop, No JVD, No Murmur, No Rub. No: Gallop/S3, Gallop/S4, Friction Rub Peripheral Pulses: 2+: Radial (L), Radial (R), Dorsalis Pedis (L), Dorsalis Pedis (R) GI/Abdominal: Normal Bowel Sounds, Soft, Non-Tender, No Organomegaly, No Distention, No Abnormal Bruit, No Mass, Pelvis Stable. No: Guarding (Male) Exam: Deferred Rectal (Males) Exam: Deferred Back Exam: Normal Inspection, Full Range of Motion. No: CVA Tenderness (L), CVA Tenderness (R), Muscle Spasm Extremities: Normal Inspection, Normal Range of Motion, Non-Tender, No Pedal Edema, Normal Capillary Refill. No: Catherine's Sign Neurological: Alert, Oriented, CN II-XII Intact, Normal Cognition, Normal Gait, Normal Reflexes (Negative Babinski's), No Motor/Sensory Deficits Psychiatric: Anxious (Moderate), Depressed Mood (Moderate with adequate eye contact), Flat Affect. No: Tearful Skin Exam: Warm, Dry, Intact, Normal Color, No Rash. No: Diaphoretic, Ecchymosis, Petechiae, Wound/Incision Lymphatic: No Adenopathy #1 Interpretation EKG Date: 07/02/20 Time: 10:55 Rhythm: NSR Rate (Beats/Min): 77 Hilliards: Normal (Neutral cardiac axis) P-Wave: Present (Mild diffuse biphasic P waves with poor R wave progression in the anterior leads) QRS: Normal (0.09 seconds) ST-T: Normal QT: Normal LA/PQ Interval: 0.19 seconds Comparison: NA - No Prior EKG (No previous recent EKG in our hospital records for comparison, however no change in EKG from that taken by the paramedics prior to transfer to this facility.) EKG Interpretation Comments: 1. No acute ischemic changes 2. Possible left atrial enlargement #2 Interpretation EKG Date: 07/02/20 Time: 11:46 Rhythm: NSR Rate (Beats/Min): 69 Hilliards: Normal (Neutral cardiac axis) P-Wave: Present (Mild biphasic P waves with poor R wave progression in the anterior leads) QRS: Normal (0.08 seconds) ST-T: Normal QT: Normal LA/PQ Interval: 0.19 seconds Comparison: No Change (From previous EKG earlier this morning as above.) EKG Interpretation Comments: 1. No acute ischemic changes 2. Possible left atrial enlargement Course - Vital Signs Last Recorded V/S: Last Vital Signs Temp 36.8 C 07/02/20 11:00 Pulse 69 07/02/20 12:20 Resp 20 07/02/20 12:20 BP 123/73 07/02/20 12:20 Pulse Ox 96 07/02/20 12:20 Vital Signs - 24 hr 07/02/20 07/02/20 07/02/20 11:00 11:17 11:32 Temperature [ 36.8 C Temporal] Pulse, 80 74 68 Peripheral [ Pulse Oximetry] Respiratory 20 25 H 26 H Rate Blood Pressure 122/77 126/77 119/76 [Right Upper Arm] O2 Sat by Pulse 97 98 97 Oximetry 07/02/20 07/02/20 07/02/20 11:48 12:01 12:20 Temperature [ Temporal] Pulse, 67 72 69 Peripheral [ Pulse Oximetry] Respiratory 26 H 21 H 20 Rate Blood Pressure 120/77 123/81 123/73 [Right Upper Arm] O2 Sat by Pulse 98 96 96 Oximetry - Orders/Labs/Meds Orders: Active Orders 24 hr Category Date Time Status Cardiac Monitoring [RC] . DIRECTED Care 07/02/20 10:58 Active EKG Documentation Completion [RC] ASDIRECTED Care 07/02/20 10:58 Active EKG Documentation Completion [RC] ASDIRECTED Care 07/02/20 11:46 Active Oxygen Therapy, ED [RC] PRN Care 07/02/20 10:58 Active Peripheral IV Care [RC] . DIRECTED Care 07/02/20 10:58 Active Pulse Oximetry [RC] CONTINUOUS Care 07/02/20 10:58 Active Up With Assistance [RC] PFP Care 07/02/20 10:58 Active Vital Signs [RC] PFP Care 07/02/20 10:58 Active Nothing per Oral Now Diet [DIET] Diet 07/02/20 Breakfast Active Chest 1V Frontal [CR] Stat Exams 07/02/20 10:58 Taken Nitroglycerin/D5W [Nitroglycerin 25 MG/D5W 250 ML] Med 07/02/20 11:45 Active 25 mg in 250 ml IV TITRATE Sodium Chloride 0.9% [Normal Saline] 1,000 ml Med 07/02/20 11:45 Active IV ASDIRECTED Sodium Chloride 0.9% [Saline Flush] Med 07/02/20 10:58 Active 10 ml FLUSH ASDIRECTED PRN Obtain Past Medical Record [OM.PC] Urgent Oth 07/02/20 10:58 Active Peripheral IV Insertion Adult [OM.PC] Stat Oth 07/02/20 10:58 Ordered Resuscitation Status Stat Resus Stat 07/02/20 10:58 Ordered Medication Orders Nitroglycerin/Dextrose (Nitroglycerin 25 Mg/D5w 250 Ml) 25 mg in 250 mls @ 3 mls/hr IV TITRATE RAFAEL Last Admin: 07/02/20 11:44 Dose: 5 mcg/min, 3 mls/hr Documented by: GABI Sodium Chloride (Normal Saline) 1,000 mls @ 30 mls/hr IV ASDIRECTED RAFAEL Last Admin: 07/02/20 11:45 Dose: 30 mls/hr Documented by: GABI Sodium Chloride (Saline Flush) 10 ml FLUSH ASDIRECTED PRN PRN Reason: Keep Vein Open Last Admin: 07/02/20 11:09 Dose: 10 ml Documented by: GABI Labs: Laboratory Tests 07/02/20 07/02/20 07/02/20 Range/Units 11:05 11:05 11:05 WBC 5.8 (4.0-10.2) K/uL RBC 4.62 (4.33-5.41) M/uL Hgb 14.3 (13.1-16.8) g/dL Hct 45.0 (39.0-49.0) % MCV 97.4 (84.0-98.0) fL MCH 31.0 (28.2-33.3) pg MCHC 31.8 (31.7-36.0) g/dL RDW 13.7 (11.2-14.1) % Plt Count 224 (150-350) K/uL Neut % (Auto) 58.3 (45.0-80.0) % Lymph % (Auto) 28.6 (10.0-50.0) % Alexander % (Auto) 10.4 (2.0-14.0) % Eos % (Auto) 2.4 (0.0-5.0) % Baso % (Auto) 0.3 (0.0-2.0) % Neut # (Auto) 3.40 (1.40-7.00) K/uL Lymph # (Auto) 1.67 (0.50-3.50) K/uL Alexander # (Auto) 0.61 (0.00-1.00) K/uL Eos # (Auto) 0.14 (0.00-0.50) K/uL Baso # (Auto) 0.02 (0.00-0.20) K/uL PT 9.7 (9.5-12.0) SEC INR 1.0 APTT 21.9 L (24.5-32.8) SEC D-Dimer, Quantitative 449 H (0-400) ng/mL Sodium (136-145) mmol/L Potassium (3.5-5.1) mmol/L Chloride (98-107) mmol/L Carbon Dioxide (21.0-32.0) mmol/L BUN (7-18) mg/dL Creatinine (0.51-1.17) mg/dL Est Cr Clr Drug Dosing mL/min Estimated GFR (MDRD) mL/min Glucose (74-106) mg/dL Lactic Acid (0.4-2.0) mmol/L Uric Acid (2.6-7.2) mg/dL Calcium (8.5-10.1) mg/dL Magnesium (1.8-2.4) mg/dL Total Bilirubin (0.2-1.0) mg/dL AST (15-37) U/L ALT (12-78) U/L Alkaline Phosphatase (46-116) IU/L Creatine Kinase (26-308) U/L Creatine Kinase Index (0.0-2.5) % CK-MB (CK-2) (0.00-3.60) ng/mL Troponin I (0.000-0.056) ng/mL NT-Pro-B Natriuret Pep (0-125) pg/mL Total Protein (6.4-8.2) g/dL Albumin (3.4-5.0) g/dL TSH, Ultra Sensitive (0.358-3.740) mIU/mL 07/02/20 07/02/20 Range/Units 11:05 11:05 WBC (4.0-10.2) K/uL RBC (4.33-5.41) M/uL Hgb (13.1-16.8) g/dL Hct (39.0-49.0) % MCV (84.0-98.0) fL MCH (28.2-33.3) pg MCHC (31.7-36.0) g/dL RDW (11.2-14.1) % Plt Count (150-350) K/uL Neut % (Auto) (45.0-80.0) % Lymph % (Auto) (10.0-50.0) % Alexander % (Auto) (2.0-14.0) % Eos % (Auto) (0.0-5.0) % Baso % (Auto) (0.0-2.0) % Neut # (Auto) (1.40-7.00) K/uL Lymph # (Auto) (0.50-3.50) K/uL Alexander # (Auto) (0.00-1.00) K/uL Eos # (Auto) (0.00-0.50) K/uL Baso # (Auto) (0.00-0.20) K/uL PT (9.5-12.0) SEC INR APTT (24.5-32.8) SEC D-Dimer, Quantitative (0-400) ng/mL Sodium 140 (136-145) mmol/L Potassium 3.7 (3.5-5.1) mmol/L Chloride 104 (98-107) mmol/L Carbon Dioxide 25.6 (21.0-32.0) mmol/L BUN 18 (7-18) mg/dL Creatinine 0.62 (0.51-1.17) mg/dL Est Cr Clr Drug Dosing 112.91 mL/min Estimated GFR (MDRD) > 60 mL/min Glucose 111 H (74-106) mg/dL Lactic Acid 1.6 (0.4-2.0) mmol/L Uric Acid 4.8 (2.6-7.2) mg/dL Calcium 8.7 (8.5-10.1) mg/dL Magnesium 2.1 (1.8-2.4) mg/dL Total Bilirubin 0.4 (0.2-1.0) mg/dL AST 22 (15-37) U/L ALT 28 (12-78) U/L Alkaline Phosphatase 79 (46-116) IU/L Creatine Kinase 245 (26-308) U/L Creatine Kinase Index 3.1 H (0.0-2.5) % CK-MB (CK-2) 7.50 H* (0.00-3.60) ng/mL Troponin I 0.000 (0.000-0.056) ng/mL NT-Pro-B Natriuret Pep 29 (0-125) pg/mL Total Protein 7.2 (6.4-8.2) g/dL Albumin 3.9 (3.4-5.0) g/dL TSH, Ultra Sensitive 2.575 (0.358-3.740) mIU/mL Meds: Medications Generic Name Dose Route Start Last Admin Trade Name Freq PRN Reason Stop Dose Admin Nitroglycerin/Dextrose 25 mg in 250 mls @ 3 mls/hr 07/02/20 11:45 10/14/20 11:44 Nitroglycerin 25 Mg/D5w 250 Ml IV 5 mcg/min TITRATE RAFAEL 3 mls/hr Administration 5 MCG/MIN Sodium Chloride 1,000 mls @ 30 mls/hr 07/02/20 11:45 07/02/20 11:45 Normal Saline IV 30 mls/hr ASDIRECTED RAFAEL Administration Sodium Chloride 10 ml 07/02/20 10:58 07/02/20 11:09 Saline Flush FLUSH 10 ml ASDIRECTED PRN Administration Keep Vein Open Discontinued Medications Generic Name Dose Route Start Last Admin Trade Name Freq PRN Reason Stop Dose Admin Famotidine 40 mg 07/02/20 10:58 07/02/20 11:08 Pepcid IVPUSH 07/02/20 10:59 40 mg ONETIME ONE Administration Ticagrelor 180 mg 07/02/20 10:58 07/02/20 11:08 Brilinta PO 07/02/20 10:59 180 mg ONETIME ONE Administration - Radiology Interpretation Free Text/Narrative:: cardiac monitor technician showed normal sinus rhythm with heart rate in the 60s 80s with no ectopy or arrhythmia Chest x-ray, portable, shows somewhat poor inspiratory film with possible mild pulmonary obstructive disease with no pulmonary infiltrates, pneumothorax, cardiomegaly, CHF, etc. Mild prominence of the proximal aortic arch with no evidence of aneurysm. Departure - Departure Time of Disposition: 12:30 Disposition: DC/Tfer to [facility] 02 Reason for Transfer *Q: Other (Cardiology consultation on arrival.) Condition: Good Clinical Impression: Mixed anxiety depressive disorder, Peptic reflux disease, Osteoarthritis, D- dimer, elevated, Syncope Chest pain Qualifiers: Chest pain type: precordial pain Qualified Code(s): R07.2 - Precordial pain Referrals: PCP,Unknown [Ordering Only Provider] - Forms: ED Department Discharge, Interfacility Transfer EMTALA Care Plan Goals: Ambulance transfer with rouge miller accompaniment Sepsis Event Note (ED) - Focused Exam Vital Signs: Vital Signs Temp Pulse Resp BP Pulse Ox 07/02/20 12:20 69 20 123/73 96 07/02/20 12:01 72 21 H 123/81 96 07/02/20 11:48 67 26 H 120/77 98 07/02/20 11:32 68 26 H 119/76 97 07/02/20 11:17 74 25 H 126/77 98 07/02/20 11:00 36.8 C 80 20 122/77 97 - Problem List & Annotations (1) Chest pain SNOMED Code(s): 87163016 Code(s): R07.9 - CHEST PAIN, UNSPECIFIED Status: Acute Priority: High Current Visit: Yes Onset Date: 07/02/20 Annotation/Comment:: Chest pain protocol initiated immediately upon patient's arrival to this facility. Note significant previous treatment by plate painter apprentice and paramedics prior to arrival as per HPI. Patient did not need any further oxygen supplementation in this facility. Note elevated CK index and CK-MB with normal troponin and serial EKGs x3 including initial evaluation by the rouge miller prior to transfer. Despite aggressive treatment measures as above patient's chest pain remains refractory in nature with 6/10 sharp left chest pain prior to transfer. Low-dose nitroglycerin infusion was initiated, although impression of occasional relationship of patient's chest discomfort with movement despite his chest pain not being reproducible by palpation. Note anxious component as below. Telephone consultation at 11:43 AM with [facility] with subsequent telephone consultation at 11:[address] Rodriguez, ER and hospitalist physician at [facility], who does accept the patient for transfer with initial evaluation in the emergency room. No further treatment recommendations given. No further heparin therapy at this time secondary to his concerns of possible dissecting aortic aneurysm with emergent CT to be conducted in their facility upon the patient's arrival. Physical exam and vital signs were stable for transfer. Note excellent pedal pulses, stable vital signs, etc.. Ambulance transfer with rouge miller accompaniment. Qualifiers: Chest pain type: precordial pain Qualified Code(s): R07.2 - Precordial pain (2) D-dimer, elevated SNOMED Code(s): 867745030 Code(s): R79.89 - OTHER SPECIFIED ABNORMAL FINDINGS OF BLOOD CHEMISTRY Status: Acute Priority: High Current Visit: Yes Onset Date: 07/02/20 Annotation/Comment:: Mild to moderate d-dimer elevation with no clinical evidence of DVT or PE. Probable CTA of the chest upon patient's arrival to the emergency room at [facility] as above. Consider venous Doppler studies of the lower extremities. (3) Syncope SNOMED Code(s): 842762540 Code(s): R55 - SYNCOPE AND COLLAPSE Status: Acute Priority: High Current Visit: Yes Onset Date: 07/02/20 Annotation/Comment:: Possible syncopal episode with brief loss of consciousness per history from the EMT and rouge miller as above. No postictal sedation, neurological deficits, evidence of seizure activity, injury, etc. Probable cardiac work-up as above with neurology consultation depending on his clinical course. Qualifiers: Syncope type: unspecified Qualified Code(s): R55 - Syncope and collapse (4) Peptic reflux disease SNOMED Code(s): 591170910 Code(s): K21.9 - GASTRO-ESOPHAGEAL REFLUX DISEASE WITHOUT ESOPHAGITIS Status: Chronic Priority: Medium Current Visit: Yes Annotation/Comment:: Previously stable by history. High-dose IV Pepcid given as GI prophylaxis. (5) Mixed anxiety depressive disorder SNOMED Code(s): 294294504 Code(s): F41.8 - OTHER SPECIFIED ANXIETY DISORDERS Status: Chronic Priority: Medium Current Visit: Yes Annotation/Comment:: Poor control based on on today's exam. Note recent of his brother as above. Emotional support was provided. Continue to observe closely by his accepting and regular providers. (6) Osteoarthritis SNOMED Code(s): 156996041 Code(s): M19.90 - UNSPECIFIED OSTEOARTHRITIS, UNSPECIFIED SITE Status: Chronic Priority: Medium Current Visit: Yes Annotation/Comment:: Otherwise stable by history. No recent fall, injury, etc. Qualifiers: Osteoarthritis location: multiple joints Osteoarthritis type: primary Qualified Code(s): M89.49 - Other hypertrophic osteoarthropathy, multiple sites - Problem List Review Problem List Initiated/Reviewed/Updated: Yes - My Orders Last 24 Hours: My Active Orders 07/02/20 Breakfast Nothing per Oral Now Diet [DIET] 07/02/20 10:58 Cardiac Monitoring [RC] . DIRECTED EKG Documentation Completion [RC] ASDIRECTED Oxygen Therapy, ED [RC] PRN Peripheral IV Care [RC] . DIRECTED Pulse Oximetry [RC] CONTINUOUS Up With Assistance [RC] PFP Vital Signs [RC] PFP Chest 1V Frontal [CR] Stat Sodium Chloride 0.9% [Saline Flush] 10 ml FLUSH ASDIRECTED PRN Obtain Past Medical Record [OM.PC] Urgent Peripheral IV Insertion Adult [OM.PC] Stat Resuscitation Status Stat 07/02/20 11:45 Nitroglycerin/D5W [Nitroglycerin 25 MG/D5W 250 ML] 25 mg in 250 ml IV TITRATE Sodium Chloride 0.9% [Normal Saline] 1,000 ml IV ASDIRECTED 07/02/20 11:46 EKG Documentation Completion [RC] ASDIRECTED - Assessment/Plan Last 24 Hours: My Active Orders 07/02/20 Breakfast Nothing per Oral Now Diet [DIET] 07/02/20 10:58 Cardiac Monitoring [RC] . DIRECTED EKG Documentation Completion [RC] ASDIRECTED Oxygen Therapy, ED [RC] PRN Peripheral IV Care [RC] . DIRECTED Pulse Oximetry [RC] CONTINUOUS Up With Assistance [RC] PFP Vital Signs [RC] PFP Chest 1V Frontal [CR] Stat Sodium Chloride 0.9% [Saline Flush] 10 ml FLUSH ASDIRECTED PRN Obtain Past Medical Record [OM.PC] Urgent Peripheral IV Insertion Adult [OM.PC] Stat Resuscitation Status Stat 07/02/20 11:45 Nitroglycerin/D5W [Nitroglycerin 25 MG/D5W 250 ML] 25 mg in 250 ml IV TITRATE Sodium Chloride 0.9% [Normal Saline] 1,000 ml IV ASDIRECTED 07/02/20 11:46 EKG Documentation Completion [RC] ASDIRECTED Assessment:: As above Plan: As above. Extensive precautions were given to the patient, who is in agreement with the treatment plan. The patient's was informed of treatment plan, patient transfer, etc. by telephone by the emergency room nurse. Ambulance transfer with rouge miller accompaniment as above. Note patient normally does not get influenza booster secondary to previous secondary reactions by his history.
[2020-07-02] MEDS: Famotidine 20 MG/2 ML SDV IVPUSH ONE (11:08)
[2020-07-02] MEDS: Ticagrelor 90 MG Tab PO ONE (11:08)
[2020-07-02] MEDS: Sodium Chloride 0.9% 10 ML Syringe FLUSH PRN (11:09)
[2020-07-02 11:26] LABS: PTT,PARTIAL THROMBOPLSTIN TIME 21.9 SEC (24.5-32.8)
[2020-07-02 11:36] LABS: CHLORIDE,CL 104 mmol/L (98-107); SODIUM,NA 140 mmol/L (136-145)
[2020-07-02] MEDS: Nitroglycerin/D5W 25 MG/250 ML BOTTLE IV SCH (11:44)
[2020-07-02] MEDS: Sodium Chloride 0.9% 1,000 ML IV SCH (11:45)
== END 2020-07-02 12:27 ==
LOC: LL.ED 10:55
DX: R07.2 Precordial pain (principal); F41.8 Other specified anxiety disorders; K21.9 Gastro-esophageal reflux disease without esophagitis; M19.90 Unspecified osteoarthritis, unspecified site; R79.1 Abnormal coagulation profile; R55 Syncope and collapse; J44.9 Chronic obstructive pulmonary disease, unspecified; G62.9 Polyneuropathy, unspecified; Z88.5 Allergy status to narcotic agent; Z88.8 Allergy status to other drugs, medicaments and biological substances; Z79.82 Long term (current) use of aspirin; Z79.899 Other long term (current) drug therapy
CPT/HCPCS: 36415; 71045; 80053; 82550; 82553; 83605; 83735; 83880; 84443; 84484; 84550; 85025; 85379; 85610; 85730; 93005; 96365; 96375; 99285-25; A9270-GY; J3490; J7030

== ENCOUNTER → 2021-03-19 | Day surgery (SDC) | payer BC, OTHER ==
[~2021-03-19] MED LIST: Lactated Ringers 1,000 ML IV SCH; Midazolam 1 MG/ML 2 ML SDV ONE; Propofol 200 MG/20 ML SDV ONE; Sodium Chloride 0.9% 10 ML Syringe FLUSH PRN
--- NOTE | 2021-03-19 09:56 | PCM.PN ---
- General Info Date of Service: 03/19/21 - Review of Systems Systems Review Comment:: 60-year-old male referred for colonoscopy. He states that he has been having some recent hematochezia which has been painless. He is medically stable to proceed today. His recent history and physical is reviewed and no significant changes are noted. I have discussed the proposed colonoscopy with the patient. Risks such as but not limited to bleeding and GI injury reviewed. He agrees to proceed. - Patient Data Vitals - Most Recent: Last Vital Signs Temp 97.3 F 03/19/21 09:23 Pulse 63 03/19/21 09:23 Resp 16 03/19/21 09:23 BP 120/77 03/19/21 09:23 Pulse Ox 98 03/19/21 09:23 Weight - Most Recent: 88.904 kg Med Orders - Current: Current Medications Lactated Ringer's (Ringers, Lactated) 1,000 mls @ 125 mls/hr IV ASDIRECTED RAFAEL Last Admin: 03/19/21 09:32 Dose: 125 mls/hr Documented by: Sodium Chloride (Sodium Chloride 0.9% 10 Ml Syringe) 10 ml FLUSH ASDIRECTED PRN PRN Reason: Keep Vein Open Discontinued Medications Midazolam HCl (Midazolam 1 Mg/Ml 2 Ml Sdv) Confirm Administered Dose 2 mg .ROUTE .STK-MED ONE Stop: 03/19/21 08:46 Propofol (Propofol 200 Mg/20 Ml Sdv) Confirm Administered Dose 400 mg .ROUTE .STK-MED ONE Stop: 03/19/21 08:46 Sepsis Event Note - Focused Exam Vital Signs: Vital Signs Temp Pulse Resp BP Pulse Ox 03/19/21 09:23 97.3 F 63 16 120/77 98 - Problem List Review Problem List Initiated/Reviewed/Updated: Yes - Assessment Assessment:: Hematochezia - Plan Plan:: Colonoscopy
--- NOTE | 2021-03-19 10:38 | PCM.OPNOTE ---
- General Post-Op/Procedure Note Date of Surgery/Procedure: 03/19/21 Operative Procedure(s): Colonoscopy with polypectomy Findings: Moderate internal hemorrhoids Small cecal polyp Pre Op Diagnosis: Hematochezia Post-Op Diagnosis: Cecal Polyp. Hemorrhoids Anesthesia Technique: MAC Primary Surgeon: Gerardo Muniz Pathology: Cecal Polyp EBL in mLs: 2 Complications: None Condition: Good
--- NOTE | 2021-03-19 12:54 | OR ---
Date of Procedure: 03/19/2021 PREOPERATIVE DIAGNOSIS: Hematochezia. POSTOPERATIVE DIAGNOSES: Cecal polyp and internal hemorrhoids. OPERATION PERFORMED: Colonoscopy with polypectomy. INDICATIONS FOR SURGERY: This 60-year-old male has a history of recent painless rectal bleeding, and he is referred for diagnostic colonoscopy. FINDINGS: The patient has moderate-sized internal hemorrhoids. These are somewhat friable and do demonstrate a mild amount of bleeding with the examination. No other rectal masses or rectal pathology were seen. The patient did have a small cecal polyp, 5 mm in diameter. The colon otherwise appeared normal. DESCRIPTION OF PROCEDURE: The patient was taken to the operating room, and he was given intravenous sedation, and with him in the left lateral decubitus position, digital rectal exam was performed showing no rectal masses. The Olympus colonoscope was inserted into the rectum and retroflexed examination of the rectal canal was performed. The scope was then carefully advanced under direct visualization through the entire length of the colon until the cecum was reached. Cecal acquisition was confirmed by noting the normal internal cecal anatomy including the appendiceal orifice and the ileocecal valve. A small polyp was noted in the cecum. This was removed completely with a cold biopsy forceps. The polyp was retrieved. The scope was then slowly withdrawn sequentially re-examining the colonic segments until the entire colon and rectum had been fully examined. The scope was removed and the patient was taken from the operating room in satisfactory condition. ESTIMATED BLOOD LOSS: 2 mL. COMPLICATIONS: None. PROGNOSIS: Good. ROLAND Muniz MD /[id number]
== END | disposition home or self-care (01) ==
LOC: LL.SDS 09:06
PROVIDERS: ATTEND Surgery
DX: D12.0 Benign neoplasm of cecum (principal); K64.8 Other hemorrhoids; G89.29 Other chronic pain; K21.9 Gastro-esophageal reflux disease without esophagitis; G47.30 Sleep apnea, unspecified; Z88.5 Allergy status to narcotic agent; Z88.8 Allergy status to other drugs, medicaments and biological substances; Z79.82 Long term (current) use of aspirin; Z79.899 Other long term (current) drug therapy; Z90.49 Acquired absence of other specified parts of digestive tract; Z98.890 Other specified postprocedural states
CPT/HCPCS: 00812; J2250; J2704; J7120

== ENCOUNTER 2021-08-26 09:53 | Emergency (ER) | payer OTHER ==
[2021-08-26] MEDS ORDERED: Phenylephrine 0.5% Nasal Spray 15 ML Bot NASRT PRN (10:10)
[2021-08-26] MEDS ORDERED: Lactated Ringers 1,000 ML IV ONE (10:11)
--- NOTE | 2021-08-26 10:26 | EDM.PDOC ---
ED HPI GENERAL MEDICAL PROBLEM - General Chief Complaint: ENT Problem Stated Complaint: nose bleed Time Seen by Provider: 08/26/21 10:15 Source of Information: Reports: Patient, Family (daughter) History Limitations: Reports: No Limitations - History of Present Illness INITIAL COMMENTS - FREE TEXT/NARRATIVE: Scooter ahn is a 60 year old man with PMH significant for depression. He presents to the ED on 08/26 with complaints of epistaxis that began at 0930. He had tooth extraction about 5 days previously and daughter ( who is present at bedside) states that there was difficult insertion of a nasal airway. It could not be passed on the left and was finally placed on the right. pt took his home aspirin every day and the morning of presentation notes that he sneezed and a la rge clot came out of his right nostril. he had only occasional small trickles of blood prior to this. - Related Data Allergies Allergy/AdvReac Type Severity Reaction Status Date / Time oxycodone AdvReac Itching Verified 08/26/21 10:06 Fjyemqo-QAU-TdR Reductase AdvReac Muscle Verified 08/26/21 10:06 Inhibitor Aches [Zuedknj-Hwi-Zkm Reductase Inhibitor] Home Meds: Home Meds tadalafiL [Cialis] 5 mg PO ASDIRECTED PRN 07/25/18 [History] Aspirin [Halfprin] 81 mg PO DAILY 03/18/21 [History] Celecoxib [CeleBREX] 100 mg PO DAILY 03/18/21 [History] Cyanocobalamin (Vitamin B12) [Vitamin B12] 500 mcg PO DAILY 03/18/21 [History] DULoxetine HCl [Cymbalta] 30 mg PO DAILY 03/18/21 [History] FLUoxetine HCl [Fluoxetine HCl] 30 mg PO DAILY 03/18/21 [History] Mirtazapine [Remeron] 15 mg PO BEDTIME 03/18/21 [History] Pantoprazole Sodium [Protonix] 40 mg PO DAILY 03/18/21 [History] Trospium Chloride 20 mg PO DAILY 03/18/21 [History] Amoxicillin/Potassium Clav [Augmentin 875-125 Tablet] 1 each PO BIDMEALS 14 Days #28 tablet 08/26/21 [Rx] Past Medical History HEENT History: Reports: Other (See Below) Other HEENT History: hx. of eye surgery Cardiovascular History: Reports: High Cholesterol Other Cardiovascular History: Granulomatosis Respiratory History: Reports: COPD, Other (See Below) Other Respiratory History: COPD by chest x-ray with no current treatment, etc. Gastrointestinal History: Reports: GERD, Hiatal Hernia Genitourinary History: Reports: Other (See Below) Other Genitourinary History: Benign chronic microcytic anemia with previous negative extensive work-up by patient history. Erectile dysfunction. Musculoskeletal History: Reports: Arthritis, Back Pain, Chronic, Fracture, Osteoarthritis, Other (See Below) Other Musculoskeletal History: Right hip fracture on 11/21/18. Neurological History: Reports: Neuropathy, Peripheral, Other (See Below) Other Neuro History: thoracic or lumbosacral neuritis or radiculitis, lumbar stenosis w/ neurogenic claudication Psychiatric History: Reports: Anxiety, Depression Endocrine/Metabolic History: Reports: None Immunologic History: Reports: None - Infectious Disease History Infectious Disease History: Reports: Chicken Pox, Influenza - Past Surgical History GI Surgical History: Reports: Colonoscopy, Other (See Below) Other Neurological Surgeries/Procedures: Spinal cord stimulator placed in the thoracic region in February 2018. L4-5 spinal fusion in 2010. Musculoskeletal Surgical History: Reports: Arthroscopic Procedure, Hip Replacement, Shoulder Surgery, Other (See Below) - Past Imaging History Past Imaging History: Reports: Angiography (Negative heart catheterization in about 2018 by patient history.) Social & Family History - Family History Family Medical History: No Pertinent Family History HEENT: Reports: None Cardiac: Reports: CAD, [place] Respiratory: Reports: None GI: Reports: None : Reports: None OBGYN: Reports: None Musculoskeletal: Reports: None Neurological: Reports: Other (See Below) (Brother with fatal Kreutz Viera's disease at age 61) Psychiatric: Reports: None Endocrine/Metabolic: Reports: Diabetes, type II Hematologic: Reports: None Immunologic: Reports: None Dermatologic: Reports: None Oncologic: Reports: Breast, Lung - Caffeine Use Caffeine Use: Reports: Coffee - Living Situation & Occupation Living situation: Reports: , with Family Occupation: Employed (Status Work [employer]) ED ROS ENT - Review of Systems Review Of Systems: See Below Constitutional: Reports: No Symptoms HEENT: Reports: Glasses, Nosebleed Respiratory: Reports: No Symptoms Cardiovascular: Reports: No Symptoms Endocrine: Reports: No Symptoms GI/Abdominal: Reports: No Symptoms : Reports: No Symptoms Musculoskeletal: Reports: No Symptoms Skin: Reports: No Symptoms Neurological: Reports: No Symptoms Psychiatric: Reports: No Symptoms Hematologic/Lymphatic: Reports: No Symptoms Immunologic: Reports: No Symptoms ED EXAM, ENT - Physical Exam Exam: See Below Exam Limited By: No Limitations General Appearance: Alert, Moderate Distress Ears: Normal External Exam Nose: Nasal Swelling, Nasal Tenderness, Active Bleeding Mouth/Throat: Normal Oropharynx, Dental Tenderness, Other (recent teeth extractions. gums erythematous with sutures present. no active bleeding noted from extraction sites). No: Drooling, Dry Mucous Membrane Head: Atraumatic, Normocephalic Neck: Supple, Non-Tender Respiratory/Chest: Lungs Clear, Normal Breath Sounds, No Accessory Muscle Use, Chest Non-Tender Cardiovascular: Normal Peripheral Pulses, Regular Rate, Rhythm, No Edema, No Murmur GI/Abdominal: Soft, Non-Tender (Male) Exam: Deferred Rectal (Males) Exam: Deferred Back: Full Range of Motion Extremities: Normal Range of Motion, Non-Tender, No Pedal Edema Neurological: Alert, Oriented Psychiatric: Normal Affect, Normal Mood Skin: Warm, Dry, Intact Course - Vital Signs Last Recorded V/S: Last Vital Signs Temp Pulse 80 08/26/21 10:10 Resp 20 08/26/21 10:10 BP 138/90 08/26/21 10:10 Pulse Ox 98 08/26/21 10:10 - Orders/Labs/Meds Orders: Active Orders 24 hr Category Date Time Status Vital Signs [RC] We@0800 Care 08/26/21 10:11 Active TYPE AND SCREEN [BBK] Routine Lab 08/26/21 10:20 Results Phenylephrine [Mohsen-Synephrine 0.5% Regular Nasal Casey] Med 08/26/21 10:10 Active 1 ml NASRT ASDIRECTED PRN Medication Orders Phenylephrine HCl (Phenylephrine 0.5% Nasal Casey 15 Ml Bot) 1 ml NASRT ASDIRECTED PRN PRN Reason: Other Last Admin: 08/26/21 10:33 Dose: 2 sprays Documented by: GABI Labs: Laboratory Tests 08/26/21 08/26/21 08/26/21 Range/Units 10:20 10:20 10:20 WBC 5.4 (4.0-10.2) K/uL RBC 4.39 (4.33-5.41) M/uL Hgb 13.6 (13.1-16.8) g/dL Hct 42.3 (39.0-49.0) % MCV 96.4 (84.0-98.0) fL MCH 31.0 (28.2-33.3) pg MCHC 32.2 (31.7-36.0) g/dL RDW 13.7 (11.2-14.1) % Plt Count 248 (150-350) K/uL Neut % (Auto) 62.0 (45.0-80.0) % Lymph % (Auto) 24.9 (10.0-50.0) % [place] % (Auto) 9.5 (2.0-14.0) % Eos % (Auto) 3.2 (0.0-5.0) % Baso % (Auto) 0.4 (0.0-2.0) % Neut # (Auto) 3.35 (1.40-7.00) K/uL Lymph # (Auto) 1.34 (0.50-3.50) K/uL [place] # (Auto) 0.51 (0.00-1.00) K/uL Eos # (Auto) 0.17 (0.00-0.50) K/uL Baso # (Auto) 0.02 (0.00-0.20) K/uL Sodium 141 (136-145) mmol/L Potassium 4.1 (3.5-5.1) mmol/L Chloride 106 (98-107) mmol/L Carbon Dioxide 22.9 (21.0-32.0) mmol/L Anion Gap 12.1 (7-15) meq/L BUN 7 (7-18) mg/dL Creatinine 0.79 (0.51-1.17) mg/dL Est Cr Clr Drug Dosing TNP Estimated GFR (MDRD) > 60 mL/min Glucose 118 H (70-99) mg/dL Lactic Acid 1.0 (0.4-2.0) mmol/L Calcium 8.9 (8.5-10.1) mg/dL Total Bilirubin 0.4 (0.2-1.0) mg/dL AST 15 (15-37) U/L ALT 28 (12-78) U/L Alkaline Phosphatase 84 (46-116) IU/L Total Protein 7.4 (6.4-8.2) g/dL Albumin 3.6 (3.4-5.0) g/dL Blood Type Gel Antibody Screen 08/26/21 Range/Units 10:20 WBC (4.0-10.2) K/uL RBC (4.33-5.41) M/uL Hgb (13.1-16.8) g/dL Hct (39.0-49.0) % MCV (84.0-98.0) fL MCH (28.2-33.3) pg MCHC (31.7-36.0) g/dL RDW (11.2-14.1) % Plt Count (150-350) K/uL Neut % (Auto) (45.0-80.0) % Lymph % (Auto) (10.0-50.0) % [place] % (Auto) (2.0-14.0) % Eos % (Auto) (0.0-5.0) % Baso % (Auto) (0.0-2.0) % Neut # (Auto) (1.40-7.00) K/uL Lymph # (Auto) (0.50-3.50) K/uL [place] # (Auto) (0.00-1.00) K/uL Eos # (Auto) (0.00-0.50) K/uL Baso # (Auto) (0.00-0.20) K/uL Sodium (136-145) mmol/L Potassium (3.5-5.1) mmol/L Chloride (98-107) mmol/L Carbon Dioxide (21.0-32.0) mmol/L Anion Gap (7-15) meq/L BUN (7-18) mg/dL Creatinine (0.51-1.17) mg/dL Est Cr Clr Drug Dosing Estimated GFR (MDRD) mL/min Glucose (70-99) mg/dL Lactic Acid (0.4-2.0) mmol/L Calcium (8.5-10.1) mg/dL Total Bilirubin (0.2-1.0) mg/dL AST (15-37) U/L ALT (12-78) U/L Alkaline Phosphatase (46-116) IU/L Total Protein (6.4-8.2) g/dL Albumin (3.4-5.0) g/dL Blood Type A POSITIVE Gel Antibody Screen Negative Meds: Medications Generic Name Dose Route Start Last Admin Trade Name Isadora PRN Reason Stop Dose Admin Phenylephrine HCl 1 ml 08/26/21 10:10 08/26/21 10:33 Phenylephrine 0.5% Nasal Casey 15 Ml Bot NASRT 2 sprays ASDIRECTED PRN Administration Other Discontinued Medications Generic Name Dose Route Start Last Admin Trade Name Isadora PRN Reason Stop Dose Admin Lactated Ringer's 1,000 mls @ 999 mls/hr 08/26/21 10:11 08/26/21 10:32 Ringers, Lactated IV 08/26/21 11:11 999 mls/hr .BOLUS ONE Administration - Re-Assessments/Exams Free Text/Narrative Re-Assessment/Exam: 08/26/21 10:26 met with patient and daughter at bedside. active pressure to bilateral nares and BRB with clots in posterior nasopharynx. bleeding since morning. recent teeth extraction sites have no active bleeding. CBC, CMP, type and screen and lactic acid ordered. 1L LR bolus ordered. neosynefrin ordered. may require rhino rocket. 08/26/21 13:[address] in right and left nares. recheck at 1 hour revealed trickle of blood in posterior oropharynx and slight trickle from right nare. pressure adjusted and recheck revealed no further bleeding. Hgb stable. ready for DC Departure - Departure Time of Disposition: 13:17 Disposition: Home, Self-Care 01 Condition: Good Clinical Impression: Epistaxis - Discharge Information *PRESCRIPTION DRUG MONITORING PROGRAM REVIEWED*: Not Applicable *COPY OF PRESCRIPTION DRUG MONITORING REPORT IN PATIENT JANAY: Not Applicable Prescriptions: Amoxicillin/Potassium Clav [Augmentin 875-125 Tablet] 1 each PO BIDMEALS 14 Days #28 tablet Referrals: PCP,Unknown [Primary Care Provider] - 1 Week ([facility] primary) Forms: ED Department Discharge Additional Instructions: requires urgent follow up with [facility]/otolaryngology in the next 48 hours to assess packing/evaluate and treat epistaxis Care Plan Goals: acetaminophen 1000mg three times daily for pain control. leave nasal packing in place. follow up with ENT within 48 hours to assess/remove packing. take antibiotic twice daily for 14 days Sepsis Event Note (ED) - Focused Exam Vital Signs: Vital Signs Pulse Resp BP Pulse Ox 08/26/21 10:10 80 20 138/90 98 - Problem List Review Problem List Initiated/Reviewed/Updated: Yes - My Orders Last 24 Hours: My Active Orders 08/26/21 10:10 Phenylephrine [Mohsen-Synephrine 0.5% Regular Nasal Casey] 1 ml NASRT ASDIRECTED PRN 08/26/21 10:11 Vital Signs [RC] We@0800 08/26/21 10:20 TYPE AND SCREEN [BBK] Routine - Assessment/Plan Last 24 Hours: My Active Orders 08/26/21 10:10 Phenylephrine [Mohsen-Synephrine 0.5% Regular Nasal Casey] 1 ml NASRT ASDIRECTED PRN 08/26/21 10:11 Vital Signs [RC] We@0800 08/26/21 10:20 TYPE AND SCREEN [BBK] Routine Assessment:: epistaxis secondary to trauma, right sided - traumatic nasal airway placement during recent tooth extraction. - neosynephrine in ED with subsequent bilateral rhino rocket placement Plan: - acetaminophen 1000mg tid for pain control - follow up within 48 hours with ENT for removal of nasal packing/assessment/treatment of nasal trauma/epistaxis - expect loose stools that are black/tarry for the next 2-3 days from ingested blood - leave packing in place until follow up with ENT - augmentin 875mg twice daily with food for 14 days given increased risk from open tooth extraction sites.
[2021-08-26 10:52] LABS: ANION GAP 12.1 meq/L (7-15); CHLORIDE,CL 106 mmol/L (98-107); SODIUM,NA 141 mmol/L (136-145)
== END 2021-08-26 14:25 | disposition home or self-care (01) ==
LOC: LL.ED 09:53
DX: R04.0 Epistaxis (principal); J44.9 Chronic obstructive pulmonary disease, unspecified; K21.9 Gastro-esophageal reflux disease without esophagitis; M19.90 Unspecified osteoarthritis, unspecified site; Z88.5 Allergy status to narcotic agent; Z88.8 Allergy status to other drugs, medicaments and biological substances; Z79.82 Long term (current) use of aspirin; Z79.899 Other long term (current) drug therapy
CPT/HCPCS: 30903; 36415; 80053; 83605; 85025; 86850; 86900; 86901; 99283-25; A9270-GY; J7120